=== PATIENT | female | born 1975 | race Caucasian/White ===

== ENCOUNTER 2016-12-21 12:38 | Outpatient (CLI) | payer BC ==
[2016-08-09 19:35] VITALS: BP 116/78
== END 2016-12-21 12:40 ==
LOC: LAB 12:38
PROVIDERS: ATTEND Nurse Practitioner Family
DX: R11.10 Vomiting, unspecified (principal)
CPT/HCPCS: 87338

== ENCOUNTER 2017-02-23 16:07 | Outpatient (CLI) | payer BC ==
[2016-08-09 19:35] VITALS: BP 116/78
== END 2017-02-23 16:10 ==
LOC: LABRHC 16:07
PROVIDERS: ATTEND Physician Assistant
DX: Z11.3 Encounter for screening for infections with a predominantly sexual mode of transmission (principal)
CPT/HCPCS: 87491; 87591

== ENCOUNTER 2017-07-08 14:16 | Emergency (ER) | payer BC ==
[2017-07-08] MEDS ORDERED: KETOROLAC TROMETHAMINE 60 MG/2 ML VIAL IM ONE (14:51)
[2017-07-08] MEDS ORDERED: diphenhydrAMINE HCL 50 MG/ML VIAL IM ONE (14:51)
[2017-07-08] MEDS ORDERED: ONDANSETRON HCL/PF 4 MG/ 2ML VIAL IM ONE (14:51)
--- NOTE | 2017-07-08 14:51 | ED Physician Documentation ---
Headache - HISTORIAN Historian: patient - HPI Stated Complaint: headache Chief Complaint: Headache Onset: hours (1) Timing: other (she states she started with a headache 2-3 days ago . She routinely gets migraines however this was different. She had a sharp pain on the back left side of her head that moved over her left face lasted only a few mintues and made her dizzy and nauseated then the sharp pain was resolved. She continues with a headache. ) Exposure To: none Severity: moderate, other (during the time of sharp pain 10+) Quality: pain, throbbing, sharp Associated Symptoms: other (left ear infection ). denies: fever, chills Preceding Symptoms: other (she had a headche and the sharp pain then resolved sharp pain and headache continues ) Exacerbated By: light, noise, movement Further Comments: no Last known Well Code/Unknown Code: Unknown - ROS NEURO/PSYCH: denies: confusion, anxiety, depression, fainting EYES/ENT: sinus pain CVS/RESP: cough MS/SKIN/LYMPH: denies: muscle aches, back pain, rash, skin lesions - PAST HX Medical History: migraines, other Surgical History: other (hysterectomy, BTL, Breast mass ) Allergies/Adverse Reactions: Allergies Allergy/AdvReac Type Severity Reaction Status Date / Time carbamazepine [From Tegretol] Allergy Severe Anaphylaxis Verified 07/08/17 14:43 meperidine HCl [From Demerol] AdvReac Severe Hallucinati Verified 07/08/17 14:43 ons aripiprazole [From Abilify] AdvReac Intermediate Dizziness Verified 07/08/17 14: 43 citalopram hydrobromide AdvReac Intermediate Dizziness Verified 07/08/17 14:43 [From Celexa] lamotrigine [From Lamictal] AdvReac Intermediate Dizziness Verified 07/08/17 14: 43 quetiapine fumarate AdvReac Intermediate Dizziness Verified 07/08/17 14:43 [From Seroquel] venlafaxine HCl AdvReac Intermediate Dizziness Verified 07/08/17 14:43 [From Effexor] oxycodone HCl [From Percocet] AdvReac Headache Verified 07/08/17 14:43 Home Medications: Ambulatory Orders Medication Instructions Recorded Amoxicillin/Potassium Clav 875 each PO BID #20 tablet 07/08/17 [Augmentin 875Mg/125Mg] Cetirizine HCl [Zyrtec] 10 mg PO DAILY 07/08/17 - SOCIAL HX Smoking History: cigarettes Alcohol Use: none Drug Use: marijuana - Family HX Family History: none - VITAL SIGNS Vital Signs: Vital Signs Temp Pulse Resp BP Pulse Ox 98.2 F 77 16 129/91 98 07/08/17 14:32 07/08/17 14:32 07/08/17 14:32 07/08/17 14:32 07/08/17 14:32 - REVIEWED ASSESSMENTS Nursing Assessment Reviewed: Yes Vitals Reviewed: Yes ED Results Lab/Radiology - Orders Orders: ED Orders Category Date Time Status Ketorolac Tromethamine [Toradol] Med 07/08/17 14:51 Discontinued 60 mg IM NOW ONE Ondansetron HCl/Pf [Zofran 4 mg/2 ml] Med 07/08/17 14:51 Discontinued 4 mg IM NOW ONE diphenhydrAMINE HCL [Benadryl] Med 07/08/17 14:51 Discontinued 50 mg IM NOW ONE Headache Physical Exam - EXAM General Appearance: no acute distress, alert EENT: no facial swelling, eyes nml inspection, PERRL, left (Red TM and buldging TM ) Neck: normal inspection Respiratory: no resp distress, chest non-tender, breath sounds normal CVS: reg. rate & rhythm, heart sounds nml Abdomen: non-tender, no organomegaly, nml bowel sounds, no distention Skin: color nml, no rash Extremitites: non-tender, normal range of motion, no evidence of injury, no edema - NEURO/PSYCH Higher Functions: alert, oriented x3, nml speech, mood/affect nml Cranial: nml as tested, no evidence of acute CVA Cerebellar: nml as tested Sensorimotor: motor nml, sensation nml Discharge Clincal Impression: Headache Qualifiers: Headache type: unspecified Headache chronicity pattern: chronic headache Intractability: not intractable Qualified Code(s): R51 - Headache Prescriptions: Amoxicillin/Potassium Clav [Augmentin 875Mg/125Mg] 875 each PO BID #20 tablet Referrals: Melania Muhammad PA [PHYSICIAN [employer]] - 2 Days Condition: Stable Disposition: 01 HOME, SELF-CARE Decision to Admit: NO Date of Decison to Admit: 07/08/17 Decision Time: 15:19
[2017-07-08 15:47] VITALS: BP 112/79
== END 2017-07-08 15:35 | disposition home or self-care (01) ==
LOC: ED 14:16
DX: R51 Headache (principal)
CPT/HCPCS: J1200; J1885; J2405; 96372; 99283

== ENCOUNTER 2018-08-14 14:43 | Outpatient (CLI) | payer BC ==
--- NOTE | 2018-08-15 00:27 | Diagnostic Imaging Report ---
JAMES BAHENA [facility] [id number] [facility] [address] [id number] Report Submission Date: Aug 14, 2018 4:56:34 PM [employer] Patient Study Name: ANNALISA SANCHEZ Date: Aug 14, 2018 2:59:20 PM [employer] Modality Type: DX Gender: F Description: SPINE : 79 Institution: [facility] Physician: JAMES BAHENA Examination: Plain film lumbar spine History: BACK PAIN WITH SCIATICA, NO KNOWN INJURY, PT STATES SHE WOKE UP A WEEK AGO WITH PAIN (Hx) Findings: 3 views of the lumbar spine demonstrate normal height. No anterior compression. Minimal degenerative spurring. No soft tissue abnormalities. Impression: No acute vertebral body abnormality. Electronically signed on Aug 14, 2018 4:56:34 PM [employer] by: Mannie WALLACE
== END 2018-08-14 14:44 ==
LOC: RAD 14:43
PROVIDERS: ATTEND Nurse Practitioner Family
DX: M54.31 Sciatica, right side (principal)
CPT/HCPCS: 72100